=== PATIENT | male | born 1995 ===

== ENCOUNTER 2018-07-24 03:50 | Inpatient (IN) | payer OTHER ==
[2018-07-24] MEDS ORDERED: Sodium Chloride 0.9% 1,000 ML IV ONE ×2 (04:24→08:03)
[2018-07-24] MEDS ORDERED: Sodium Chloride 0.9% 1,000 ML ONE ×2 (04:36→08:00)
[2018-07-24 04:40] LABS: BASO % 0.2 % (0.0-2.0); EOS # 0.1 K/uL (0.0-0.7); EOS % 1.2 % (0.0-4.0); HEMOGLOBIN 15.2 g/dL (12.0-18.0); LYMPH % 29.9 % (20.0-40.0); MEAN CELL VOLUME 87.6 fL (80.0-94.0); MEAN CORPUSCULAR HEMOGLOBIN 30.8 pg (27.0-31.0); MEAN CORPUSCULAR HGB CONC 35.1 g/dL (33.0-37.0); MEAN PLATELET VOLUME 7.9 fL (7.2-11.7); MONO # 1.1 K/uL (0.0-0.8); MONO % 11.3 % (0.0-10.0); NEUT # 5.8 K/uL (1.8-7.0); NEUT % 57.4 % (50.0-75.0); NRBC % 0.1 % (0.0-2.0); RBC 4.95 Mil/uL (4.40-5.90); RED CELL DISTRIBUTION WIDTH 12.8 % (11.5-14.5); WHITE BLOOD COUNT 10.1 K/uL (4.8-10.8)
[2018-07-24 04:42] LABS: SQUAMOUS EPITHIAL < 1 /hpf (0-5); URINE BILIRUBIN NEGATIVE (NEGATIVE); URINE CLARITY Clear (Clear); URINE COLOR Yellow (YELLOW); URINE GLUCOSE (UA) NORMAL (Normal); URINE LEUKOCYTE ESTERASE NEG Leu/uL (Negative); URINE PROTEIN NEGATIVE (NEGATIVE); URINE UROBILINOGEN NORMAL mg/dL (0.2-1.0)
[2018-07-24 04:45] LABS: URINE BLOOD NEGATIVE (NEGATIVE)
--- NOTE | 2018-07-24 04:50 | C.PDOC ---
History Of Present Illness 23 y/o male presents to the ED complaining of intermittent RUQ pain for one month. He states the pain worsened tonight and was accompanied by vomiting, prompting ED visit. The patient denies any fever, diarrhea, or sick contact. Time Seen by Provider: 07/24/18 04:05 Chief Complaint (Nursing): Abdominal Pain History Per: Patient History/Exam Limitations: no limitations Onset/Duration Of Symptoms: Days Current Symptoms Are (Timing): Still Present Location Of Pain/Discomfort: RUQ Associated Symptoms: Vomiting. denies: Fever, Diarrhea Recent travel outside of the [place]: No Past Medical History Reviewed: Historical Data, Nursing Documentation, Vital Signs Vital Signs: Last Vital Signs Temp 98.2 F 07/24/18 06:09 Pulse 92 H 07/24/18 06:09 Resp 20 07/24/18 06:09 BP 124/80 07/24/18 06:09 Pulse Ox 100 07/24/18 06:09 - Medical History PMH: No Chronic Diseases Surgical History: No Surg Hx Family History: States: Unknown Family Hx - Social History Hx Alcohol Use: Yes Hx Substance Use: No Review Of Systems Except As Marked, All Systems Reviewed And Found Negative. Constitutional: Negative for: Fever Gastrointestinal: Positive for: Vomiting, Abdominal Pain (RUQ pain). Negative for: Diarrhea Physical Exam - Physical Exam Appears: Non-toxic, No Acute Distress Skin: Normal Color, Warm, Dry Head: Atraumatic, Normacephalic Oral Mucosa: Moist Cardiovascular: Rhythm Regular, No Murmur Respiratory: Normal Breath Sounds, No Rales, No Rhonchi, No Wheezing Gastrointestinal/Abdominal: Soft, Tenderness (to RUQ), No Distention, No Guarding, No Rebound, Other (+ Puentes's Sign) Back: No CVA Tenderness Neurological/Psych: Oriented x3, Normal Speech ED Course And Treatment - Laboratory Results Result Diagrams: 07/24/18 04:37 07/24/18 04:37 O2 Sat by Pulse Oximetry: 99 (RA) Pulse Ox Interpretation: Normal Progress Note: Pending Labs: CMP, Lipase, CBC, UA and US of abd. Toradol (30 mg IV), Zofran Ink (4 mg IV) and IV fluids given in ED. 0515: Pt c/o of reccuring pain, toradol 15mg IV ordered. pt remained stable in ED. Pt pending RUQ US- s/o to JUAN Song Disposition - Disposition Disposition Time: 07:01 Condition: STABLE Forms: [facility] ([place]) - Clinical Impression Clinical Impression: RUQ abdominal pain - PA / COMMUTATOR REPAIRER / Resident Statement MD/DO has reviewed & agrees with the documentation as recorded. - Scribe Statement The provider has reviewed the documentation as recorded by the Scribe (Dasia Peters) All medical record entries made by the Scribe were at my direction and personally dictated by me. I have reviewed the chart and agree that the record accurately reflects my personal performance of the history, physical exam, medical decision making, and the department course for this patient. I have also personally directed, reviewed, and agree with the discharge instructions and disposition. Physician Patient Turnover Patient Signed Over To: Minerva Song Handoff Comments: zpending RUQ US and disposition
[2018-07-24 04:52] LABS: ALB/GLOB RATIO 1.4 (1.0-2.1); ALBUMIN 4.8 g/dL (3.5-5.0); ALT/SGPT 47 U/L (21-72); AST/SGOT 25 U/L (17-59); BLOOD UREA NITROGEN 15 mg/dL (9-20); CALCIUM 9.3 mg/dl (8.6-10.4); GFR NON-AFRICAN AMERICAN > 60; LIPASE 82 U/L (23-300)
--- NOTE | 2018-07-24 08:39 | CP.PCM.CON ---
<Nolan Rodarte - Last Filed: 07/24/18 18:35> History of Present Illness - History of Present Illness History of Present Illness: A 23 year old male with no PMHx presented to the ED with epigastric and RUQ pain. The pain began a month ago and became acutely worse last night after consuming French food for dinner. The patient stated the pain was 10/10 this morning, but is now 8/10. The pain does not radiate. Patient confirmed three episodes of nausea/vomiting with the onset of the pain. Patient states symptoms worsen with consumption of fatty and spicy foods. Patient denied fever, weight loss, chills, headache, chest pain, shortness of breath, and changes in bowel movements. PMHx - none PSHx - none Review of Systems - Review of Systems Review of Systems: 12pt ROS negative except as stated in HPI Past Patient History - Past Social History Smoking Status: Current Some Days Smoker - PSYCHIATRIC Hx Substance Use: No Meds Allergies/Adverse Reactions: Allergies Allergy/AdvReac Type Severity Reaction Status Date / Time No Known Allergies Allergy Verified 07/24/18 03:57 - Medications Medications: Current Medications Sodium Chloride (Sodium Chloride 0.9%) 1,000 mls @ 1,000 mls/hr IV .Q1H ONE Stop: 07/24/18 09:02 Last Admin: 07/24/18 08:03 Dose: 1,000 mls/hr Physical Exam - Constitutional Appears: No Acute Distress - Eye Exam Eye Exam: Normal appearance - ENT Exam ENT Exam: Mucous Membranes Moist - Respiratory Exam Respiratory Exam: NORMAL BREATHING PATTERN - Cardiovascular Exam Cardiovascular Exam: +S1, +S2 - GI/Abdominal Exam GI & Abdominal Exam: Soft, Tenderness. absent: Distended, Firm, Guarding Additional comments: +RUQ tenderness - Neurological Exam Neurological exam: Alert, Oriented x3 - Psychiatric Exam Psychiatric exam: Normal Mood - Skin Skin Exam: Dry, Intact, Warm Results - Vital Signs Recent Vital Signs: Last Vital Signs Temp 98.2 F 07/24/18 07:36 Pulse 66 07/24/18 07:36 Resp 22 07/24/18 07:36 BP 127/72 07/24/18 07:36 Pulse Ox 97 07/24/18 07:36 - Labs Result Diagrams: 07/24/18 04:37 07/24/18 04:37 Labs: Laboratory Results - last 24 hr 07/24/18 07/24/18 07/24/18 04:37 04:37 04:37 WBC 10.1 RBC 4.95 Hgb 15.2 Hct 43.3 MCV 87.6 MCH 30.8 MCHC 35.1 RDW 12.8 Plt Count 281 MPV 7.9 Neut % (Auto) 57.4 Lymph % (Auto) 29.9 Grady % (Auto) 11.3 H Eos % (Auto) 1.2 Baso % (Auto) 0.2 Neut # (Auto) 5.8 Lymph # (Auto) 3.0 Grady # (Auto) 1.1 H Eos # (Auto) 0.1 Baso # (Auto) 0.0 Sodium 142 Potassium 3.7 Chloride 101 Carbon Dioxide 29 Anion Gap 15 BUN 15 Creatinine 0.8 Est GFR ( Amer) > 60 Est GFR (Non-Af Amer) > 60 Random Glucose 117 H Calcium 9.3 Total Bilirubin 0.6 AST 25 ALT 47 Alkaline Phosphatase 73 Total Protein 8.2 Albumin 4.8 Globulin 3.4 Albumin/Globulin Ratio 1.4 Lipase 82 Urine Color Yellow Urine Clarity Clear Urine pH 6.0 Ur Specific [place] 1.024 Urine Protein Negative Urine Glucose (UA) Normal Urine Ketones Negative Urine Blood Negative Urine Nitrate Negative Urine Bilirubin Negative Urine Urobilinogen Normal Ur Leukocyte Esterase Neg Urine WBC (Auto) < 1 Urine RBC (Auto) 2 Ur Squamous Epith Cells < 1 Assessment & Plan - Assessment and Plan (Free Text) Assessment: 23M with symptomatic cholelithiasis Plan: NPO IVF ABx Analgesics/Anti-emetics OR for robotic choelcystectomy possible open Consent in chart D/w Dr. Jay Choi PGY3 <Bryan Thompson B - Last Filed: 07/26/18 14:15> Meds - Medications Medications: Current Medications Acetaminophen (Tylenol 325mg Tab) 650 mg PO Q6 PRN PRN Reason: Fever >100.4 F Benzocaine/Menthol (Cepacol Sore Throat) 1 raj MT Q2H PRN PRN Reason: Sore Throat Lactated Ringer's (Lactated Ringer's) 1,000 mls @ 125 mls/hr IV .Q8H MARY ANN Last Admin: 07/26/18 09:55 Dose: 125 mls/hr Piperacillin Sod/Tazobactam (Sod 3.375 gm/ Sodium Chloride) 100 mls @ 200 mls/ hr IVPB Q6H MARY ANN PRN Reason: Protocol Last Admin: 07/26/18 10:15 Dose: 200 mls/hr Morphine Sulfate (Morphine) 4 mg IVP Q4 PRN PRN Reason: Pain, moderate (4-7) Last Admin: 07/25/18 18:05 Dose: 4 mg Ondansetron HCl (Zofran Inj) 4 mg IVP DAILY@ONCE PRN PRN Reason: Nausea/Vomiting Oxycodone/Acetaminophen (Percocet 5/325 Mg Tab) 2 tab PO Q4H PRN PRN Reason: Pain, moderate (4-7) Stop: 07/27/18 20:14 Results - Vital Signs Recent Vital Signs: Last Vital Signs Temp 99.5 F 07/26/18 00:00 Pulse 80 07/26/18 00:00 Resp 20 07/26/18 00:00 BP 136/72 07/26/18 00:00 Pulse Ox 97 07/26/18 00:00 - Labs Result Diagrams: 07/25/18 07:16 07/25/18 07:16 Attending/Attestation - Attestation I have personally seen and examined this patient.: Yes I have fully participated in the care of the patient.: Yes I have reviewed all pertinent clinical information: Yes Notes (Text): Pt was seen and examined at bedside Agree with above note and assessment Pt with RUQ pain and nausea Abdomen : soft, tender in RUQ Labs and radiology reviewed Ass: Acute Cholecystitis with Leucocytosis Plan : Lap Cholecystectomy possible Open Consent NPO, IVF IV antibiotics Plan d.w pt in detail Risk and benefit explained in detail.
--- NOTE | 2018-07-24 09:56 | US ---
Date of service: 07/24/2018 HISTORY: RUQ abd pain COMPARISON: None. TECHNIQUE: Grayscale imaging was performed. FINDINGS: LIVER: Measures 17.8 cm in length. There is diffuse increased echogenicity of the liver parenchyma with focal fatty sparing adjacent to the gallbladder fossa. No mass. No intrahepatic bile duct dilatation. GALLBLADDER: The gallbladder is distended with mild wall thickening and pericholecystic fluid. There are multiple gallstones. The sonographic Puentes's sign is positive. COMMON BILE DUCT: Measures 4.2 mm. No stones. No dilatation. PANCREAS: Unremarkable as visualized. No mass. No ductal dilatation. RIGHT KIDNEY: Measures cm in length. Normal echogenicity. No calculus, mass, or hydronephrosis. AORTA: No aneurysmal dilatation. IVC: Unremarkable. OTHER FINDINGS: None . IMPRESSION: Findings are most compatible with acute calculus cholecystitis. Mild hepatomegaly. Fatty liver with focal fatty sparing adjacent to the gallbladder fossa.
[2018-07-24] MEDS: Lactated Ringer's 1,000 ML IV SCH (10:00)
[2018-07-24] MEDS: Piperacillin/Tazobact 3.375 GM in Sodium Chloride 100 ML IVPB SCH ×3 (11:00→23:25)
[2018-07-24] MEDS ORDERED: Pneumococcal 23-Valent Vaccine IM ONE (14:15)
--- NOTE | 2018-07-24 15:41 | CP.PCM.HP ---
Past Patient History - Past Medical History & Family History Past Medical History?: Yes - Past Social History Smoking Status: Light Smoker < 10 Cigarettes Daily - CARDIAC Hx Cardiac Disorders: No - PULMONARY Hx Respiratory Disorders: No - NEUROLOGICAL Hx Neurological Disorder: No - HEENT Hx HEENT Problems: No - RENAL Hx Chronic Kidney Disease: No - ENDOCRINE/METABOLIC Hx Endocrine Disorders: No - HEMATOLOGICAL/ONCOLOGICAL Hx Blood Disorders: No - INTEGUMENTARY Hx Dermatological Problems: No - MUSCULOSKELETAL/RHEUMATOLOGICAL Hx Musculoskeletal Disorders: No Hx Falls: No - GASTROINTESTINAL Hx Gastrointestinal Disorders: No - GENITOURINARY/GYNECOLOGICAL Hx Genitourinary Disorders: No - PSYCHIATRIC Hx Psychophysiologic Disorder: No Hx Substance Use: No - SURGICAL HISTORY Hx Surgeries: No - ANESTHESIA Hx Anesthesia: Yes (Dental procedure) Hx Anesthesia Reactions: No Has any member of the family had a problem w/ anesthesia?: No Meds Allergies/Adverse Reactions: Allergies Allergy/AdvReac Type Severity Reaction Status Date / Time No Known Allergies Allergy Verified 07/24/18 03:57 Physical Exam - Constitutional Appears: Well - Head Exam Head Exam: ATRAUMATIC, NORMAL INSPECTION, NORMOCEPHALIC - Eye Exam Eye Exam: EOMI, Normal appearance, PERRL Pupil Exam: NORMAL ACCOMODATION, PERRL - ENT Exam ENT Exam: Mucous Membranes Moist, Normal Exam - Neck Exam Neck exam: Positive for: Normal Inspection - Respiratory Exam Respiratory Exam: Decreased Breath Sounds - Cardiovascular Exam Cardiovascular Exam: REGULAR RHYTHM, +S1, +S2 - GI/Abdominal Exam GI & Abdominal Exam: Diminished Bowel Sounds, Soft - Rectal Exam Rectal Exam: Deferred Results - Vital Signs Recent Vital Signs: Last Vital Signs Temp 98.3 F 07/24/18 10:00 Pulse 60 07/24/18 10:00 Resp 20 07/24/18 10:00 BP 109/54 L 07/24/18 10:00 Pulse Ox 98 07/24/18 10:00 - Labs Result Diagrams: 07/24/18 04:37 07/24/18 04:37 Labs: Laboratory Results - last 24 hr 07/24/18 07/24/18 07/24/18 04:37 04:37 04:37 WBC 10.1 RBC 4.95 Hgb 15.2 Hct 43.3 MCV 87.6 MCH 30.8 MCHC 35.1 RDW 12.8 Plt Count 281 MPV 7.9 Neut % (Auto) 57.4 Lymph % (Auto) 29.9 [place] % (Auto) 11.3 H Eos % (Auto) 1.2 Baso % (Auto) 0.2 Neut # (Auto) 5.8 Lymph # (Auto) 3.0 [place] # (Auto) 1.1 H Eos # (Auto) 0.1 Baso # (Auto) 0.0 Sodium 142 Potassium 3.7 Chloride 101 Carbon Dioxide 29 Anion Gap 15 BUN 15 Creatinine 0.8 Est GFR ( Amer) > 60 Est GFR (Non-Af Amer) > 60 Random Glucose 117 H Calcium 9.3 Total Bilirubin 0.6 AST 25 ALT 47 Alkaline Phosphatase 73 Total Protein 8.2 Albumin 4.8 Globulin 3.4 Albumin/Globulin Ratio 1.4 Lipase 82 Urine Color Yellow Urine Clarity Clear Urine pH 6.0 Ur Specific [place] 1.024 Urine Protein Negative Urine Glucose (UA) Normal Urine Ketones Negative Urine Blood Negative Urine Nitrate Negative Urine Bilirubin Negative Urine Urobilinogen Normal Ur Leukocyte Esterase Neg Urine WBC (Auto) < 1 Urine RBC (Auto) 2 Ur Squamous Epith Cells < 1
[2018-07-24 17:13] LABS: INR 1.1; PROTHROMBIN TIME 12.4 SECONDS (9.7-12.2)
[2018-07-24] MEDS ORDERED: Bupivacaine 0.25% 20 ML INJ IJ ONE (17:26)
[2018-07-24] MEDS ORDERED: Lidocaine/Epinephrine 1% 1:100000 10 ML IJ ONE (17:27)
[2018-07-24] MEDS ORDERED: Propofol 10 mg/ml Inj (20 ML) ONE ×2 (18:14→18:23)
[2018-07-24] MEDS ORDERED: Midazolam 2 MG/2 ML VIAL ONE (18:14)
[2018-07-24] MEDS ORDERED: Succinylcholine Chloride 20 mg/ml Syr (5 ml) IV ONE (18:23)
[2018-07-24] MEDS ORDERED: Rocuronium 10 mg/ml (5 ml) ONE (18:30)
[2018-07-24] MEDS ORDERED: Neostigmine Methylsulfate 3mg/3ml Syringe IV ONE (18:35)
[2018-07-24] MEDS ORDERED: Oxycodone/Acetaminophen 5/325 mg Tab PO PRN (20:13)
[2018-07-24] MEDS ORDERED: Lactated Ringer's 1,000 ML IV ONE (20:14)
--- NOTE | 2018-07-24 20:16 | PCM.SURG1 ---
Surgeon's Initial Post Op Note - Surgeon's Notes Surgeon: Dr. Thompson [employer] Lot Attendant: Cesar iniguez [id number] Type of Anesthesia: General Endo, Local Anesthesia Administered By: Julian Pre-Operative Diagnosis: symptomatic Cholelithiasis Operative Findings: large Gallstone Post-Operative Diagnosis: Same Operation Performed: laparoscopic cholecystectomy Specimen/Specimens Removed: gallbladder Estimated Blood Loss: EBL {In ML}: 20 Blood Products Given: N/A Drains Used: No Drains Post-Op Condition: Good Date of Surgery/Procedure: 07/24/18 Time of Surgery/Procedure: 20:16
[2018-07-25] MEDS: Lactated Ringer's 1,000 ML IV SCH ×4 (01:07→18:08)
[2018-07-25 01:29] VITALS: RESP 20
[2018-07-25] MEDS: Piperacillin/Tazobact 3.375 GM in Sodium Chloride 100 ML IVPB SCH ×4 (03:02→22:12)
[2018-07-25 07:36] VITALS: O2SAT 97
[2018-07-25 07:36] LABS: BASO % 0.1 % (0.0-2.0); EOS % 0.2 % (0.0-4.0); HEMOGLOBIN 14.1 g/dL (12.0-18.0); LYMPH # 1.3 K/uL (1.0-4.3); LYMPH % 12.4 % (20.0-40.0); MEAN CELL VOLUME 88.5 fL (80.0-94.0); MEAN CORPUSCULAR HGB CONC 35.1 g/dL (33.0-37.0); MONO # 1.3 K/uL (0.0-0.8); MONO % 12.1 % (0.0-10.0); NEUT % 75.2 % (50.0-75.0); RBC 4.54 Mil/uL (4.40-5.90); RED CELL DISTRIBUTION WIDTH 12.7 % (11.5-14.5); WHITE BLOOD COUNT 10.7 K/uL (4.8-10.8)
[2018-07-25 07:57] LABS: ALB/GLOB RATIO 1.6 (1.0-2.1); ALBUMIN 4.2 g/dL (3.5-5.0); ALT/SGPT 128 U/L (21-72); AST/SGOT 126 U/L (17-59); BLOOD UREA NITROGEN 7 mg/dL (9-20); CALCIUM 8.9 mg/dl (8.6-10.4); GFR NON-AFRICAN AMERICAN > 60
--- NOTE | 2018-07-25 08:35 | CP.PCM.PN ---
<Nolan Rodarte - Last Filed: 07/25/18 08:32> Subjective - Date & Time of Evaluation Date of Evaluation: 07/25/18 Time of Evaluation: 07:10 - Subjective Subjective: Patient seen and examined. NAEO. Tolerating regular diet. Objective - Vital Signs/Intake and Output Vital Signs (last 24 hours): Temp Pulse Resp BP Pulse Ox 98.1 F 87 20 119/64 97 07/25/18 07:35 07/25/18 07:35 07/25/18 07:35 07/25/18 07:35 07/25/18 07:35 Intake and Output: 07/25/18 07/25/18 06:59 18:59 Intake Total 1250 1200 Balance 1250 1200 - Medications Medications: Current Medications Acetaminophen (Tylenol 325mg Tab) 650 mg PO Q6 PRN PRN Reason: Fever >100.4 F Lactated Ringer's (Lactated Ringer's) 1,000 mls @ 125 mls/hr IV .Q8H [facility] Last Admin: 07/25/18 03:01 Dose: 125 mls/hr Piperacillin Sod/Tazobactam (Sod 3.375 gm/ Sodium Chloride) 100 mls @ 200 mls/ hr IVPB Q6H MARY ANN PRN Reason: Protocol Last Admin: 07/25/18 03:02 Dose: 200 mls/hr Morphine Sulfate (Morphine) 4 mg IVP Q4 PRN PRN Reason: Pain, moderate (4-7) Last Admin: 07/25/18 02:59 Dose: 4 mg Ondansetron HCl (Zofran Inj) 4 mg IVP DAILY@ONCE PRN PRN Reason: Nausea/Vomiting Oxycodone/Acetaminophen (Percocet 5/325 Mg Tab) 2 tab PO Q4H PRN PRN Reason: Pain, moderate (4-7) Stop: 07/27/18 20:14 - Labs Labs: 07/25/18 07:16 07/25/18 07:16 PT 12.4 SECONDS (9.7-12.2) H 07/24/18 16:59 INR 1.1 07/24/18 16:59 APTT 40 SECONDS (21-34) H 07/24/18 16:59 - Constitutional Appears: No Acute Distress - Head Exam Head Exam: NORMOCEPHALIC - Eye Exam Eye Exam: Normal appearance - Respiratory Exam Respiratory Exam: NORMAL BREATHING PATTERN - Cardiovascular Exam Cardiovascular Exam: +S1, +S2 - GI/Abdominal Exam GI & Abdominal Exam: Soft - Neurological Exam Neurological Exam: Alert, Awake, Oriented x3 - Psychiatric Exam Psychiatric exam: Normal Mood - Skin Skin Exam: Dry, Intact, Warm Assessment and Plan - Assessment and Plan (Free Text) Assessment: 23M s/p laparoscopic cholecystectomy POD1 Plan: -Tolerating regular diet -D/c planning -F/u with Dr. Thompson in 1 week -Take analgesics as prescribed along with stool softener D/w Dr. Jay Choi PGY3 <Bryan Thompson - Last Filed: 07/26/18 14:22> Objective - Vital Signs/Intake and Output Vital Signs (last 24 hours): Temp Pulse Resp BP Pulse Ox 99.5 F 80 20 136/72 97 07/26/18 00:00 07/26/18 00:00 07/26/18 00:00 07/26/18 00:00 07/26/18 00:00 Intake and Output: 07/26/18 07/26/18 06:59 18:59 Intake Total 2140 Balance 2140 - Medications Medications: Current Medications Acetaminophen (Tylenol 325mg Tab) 650 mg PO Q6 PRN PRN Reason: Fever >100.4 F Benzocaine/Menthol (Cepacol Sore Throat) 1 raj MT Q2H PRN PRN Reason: Sore Throat Lactated Ringer's (Lactated Ringer's) 1,000 mls @ 125 mls/hr IV .Q8H [facility] Last Admin: 07/26/18 09:55 Dose: 125 mls/hr Piperacillin Sod/Tazobactam (Sod 3.375 gm/ Sodium Chloride) 100 mls @ 200 mls/ hr IVPB Q6H MAYR ANN PRN Reason: Protocol Last Admin: 07/26/18 10:15 Dose: 200 mls/hr Morphine Sulfate (Morphine) 4 mg IVP Q4 PRN PRN Reason: Pain, moderate (4-7) Last Admin: 07/25/18 18:05 Dose: 4 mg Ondansetron HCl (Zofran Inj) 4 mg IVP DAILY@ONCE PRN PRN Reason: Nausea/Vomiting Oxycodone/Acetaminophen (Percocet 5/325 Mg Tab) 2 tab PO Q4H PRN PRN Reason: Pain, moderate (4-7) Stop: 07/27/18 20:14 - Labs Labs: 07/25/18 07:16 07/25/18 07:16 PT 12.4 SECONDS (9.7-12.2) H 07/24/18 16:59 INR 1.1 07/24/18 16:59 APTT 40 SECONDS (21-34) H 07/24/18 16:59 Attending/Attestation - Attestation I have personally seen and examined this patient.: Yes I have fully participated in the care of the patient.: Yes I have reviewed all pertinent clinical information, including history, physical exam and plan: Yes Notes (Text): Pt was seen and examined at bedside Agree with above note and assessment Pt is improving C/o incisional pain and weakness Liquid diet DC plan IV antibiotics Plan d.w pt in detail Risk and benefit explained in detail.
--- NOTE | 2018-07-25 15:31 | CP.PCM.PN ---
Subjective - Date & Time of Evaluation Date of Evaluation: 07/25/18 Time of Evaluation: 08:45 - Subjective Subjective: clinically same Objective - Vital Signs/Intake and Output Vital Signs (last 24 hours): Temp Pulse Resp BP Pulse Ox 98.1 F 87 20 119/64 97 07/25/18 07:35 07/25/18 07:35 07/25/18 07:35 07/25/18 07:35 07/25/18 07:35 Intake and Output: 07/25/18 07/25/18 06:59 18:59 Intake Total 1250 1200 Balance 1250 1200 - Medications Medications: Current Medications Acetaminophen (Tylenol 325mg Tab) 650 mg PO Q6 PRN PRN Reason: Fever >100.4 F Lactated Ringer's (Lactated Ringer's) 1,000 mls @ 125 mls/hr IV .Q8H [facility] Last Admin: 07/25/18 09:25 Dose: Not Given Piperacillin Sod/Tazobactam (Sod 3.375 gm/ Sodium Chloride) 100 mls @ 200 mls/ hr IVPB Q6H MARY ANN PRN Reason: Protocol Last Admin: 07/25/18 09:17 Dose: 200 mls/hr Morphine Sulfate (Morphine) 4 mg IVP Q4 PRN PRN Reason: Pain, moderate (4-7) Last Admin: 07/25/18 13:35 Dose: 4 mg Ondansetron HCl (Zofran Inj) 4 mg IVP DAILY@ONCE PRN PRN Reason: Nausea/Vomiting Oxycodone/Acetaminophen (Percocet 5/325 Mg Tab) 2 tab PO Q4H PRN PRN Reason: Pain, moderate (4-7) Stop: 07/27/18 20:14 - Labs Labs: 07/25/18 07:16 07/25/18 07:16 PT 12.4 SECONDS (9.7-12.2) H 07/24/18 16:59 INR 1.1 07/24/18 16:59 APTT 40 SECONDS (21-34) H 07/24/18 16:59 - Constitutional Appears: Well - Head Exam Head Exam: ATRAUMATIC, NORMAL INSPECTION, NORMOCEPHALIC - Eye Exam Eye Exam: EOMI, Normal appearance, PERRL Pupil Exam: NORMAL ACCOMODATION, PERRL - ENT Exam ENT Exam: Mucous Membranes Moist, Normal Exam - Neck Exam Neck Exam: Full ROM, Normal Inspection. absent: Lymphadenopathy - Respiratory Exam Respiratory Exam: Decreased Breath Sounds - Cardiovascular Exam Cardiovascular Exam: REGULAR RHYTHM, +S1, +S2 - GI/Abdominal Exam GI & Abdominal Exam: Soft, Diminished Bowel Sounds - Rectal Exam Rectal Exam: Deferred
[2018-07-26] MEDS: Lactated Ringer's 1,000 ML IV SCH ×2 (01:30→09:55)
[2018-07-26] MEDS: Piperacillin/Tazobact 3.375 GM in Sodium Chloride 100 ML IVPB SCH ×2 (03:05→10:15)
[2018-07-26] MEDS ORDERED: Benzocaine/Menthol (Cepacol) Lozenge MT PRN (09:37)
--- NOTE | 2018-07-26 09:40 | CP.PCM.PN ---
<Nolan Rodarte - Last Filed: 07/26/18 09:36> Subjective - Date & Time of Evaluation Date of Evaluation: 07/26/18 Time of Evaluation: 06:30 - Subjective Subjective: Patient seen and examined. No acute events over night. Tolerating diet. Pain improved. Complaining of sore throat. Objective - Vital Signs/Intake and Output Vital Signs (last 24 hours): Temp Pulse Resp BP Pulse Ox 99.5 F 80 20 136/72 97 07/26/18 00:00 07/26/18 00:00 07/26/18 00:00 07/26/18 00:00 07/26/18 00:00 Intake and Output: 07/26/18 07/26/18 06:59 18:59 Intake Total 2140 Balance 2140 - Medications Medications: Current Medications Acetaminophen (Tylenol 325mg Tab) 650 mg PO Q6 PRN PRN Reason: Fever >100.4 F Lactated Ringer's (Lactated Ringer's) 1,000 mls @ 125 mls/hr IV .Q8H [facility] Last Admin: 07/26/18 01:30 Dose: 125 mls/hr Piperacillin Sod/Tazobactam (Sod 3.375 gm/ Sodium Chloride) 100 mls @ 200 mls/ hr IVPB Q6H MARY ANN PRN Reason: Protocol Last Admin: 07/26/18 03:05 Dose: 200 mls/hr Morphine Sulfate (Morphine) 4 mg IVP Q4 PRN PRN Reason: Pain, moderate (4-7) Last Admin: 07/25/18 18:05 Dose: 4 mg Ondansetron HCl (Zofran Inj) 4 mg IVP DAILY@ONCE PRN PRN Reason: Nausea/Vomiting Oxycodone/Acetaminophen (Percocet 5/325 Mg Tab) 2 tab PO Q4H PRN PRN Reason: Pain, moderate (4-7) Stop: 07/27/18 20:14 - Labs Labs: 07/25/18 07:16 07/25/18 07:16 PT 12.4 SECONDS (9.7-12.2) H 07/24/18 16:59 INR 1.1 07/24/18 16:59 APTT 40 SECONDS (21-34) H 07/24/18 16:59 - Constitutional Appears: No Acute Distress - Head Exam Head Exam: NORMOCEPHALIC - Eye Exam Eye Exam: EOMI, Normal appearance - ENT Exam ENT Exam: Mucous Membranes Moist - Respiratory Exam Respiratory Exam: NORMAL BREATHING PATTERN - Cardiovascular Exam Cardiovascular Exam: +S1 - GI/Abdominal Exam GI & Abdominal Exam: Soft. absent: Distended, Firm, Guarding, Rigid, Rebound - Neurological Exam Neurological Exam: Alert, Awake, Oriented x3 - Psychiatric Exam Psychiatric exam: Normal Mood - Skin Skin Exam: Dry, Intact, Warm Assessment and Plan - Assessment and Plan (Free Text) Assessment: 23M s/p laparoscopic cholecystectomy Plan: -Regular diet -Cepacol prn sore throat 2/2 intubation -Clear for d/c from surgical standpoint - F/u w/ Dr. Thompson in 1 week - D/w Dr. Jay Choi PGY3 <Bryan Thompson - Last Filed: 07/26/18 14:40> Objective - Vital Signs/Intake and Output Vital Signs (last 24 hours): Temp Pulse Resp BP Pulse Ox 99.5 F 80 20 136/72 97 07/26/18 00:00 07/26/18 00:00 07/26/18 00:00 07/26/18 00:00 07/26/18 00:00 Intake and Output: 07/26/18 07/26/18 06:59 18:59 Intake Total 2140 Balance 2140 - Medications Medications: Current Medications Acetaminophen (Tylenol 325mg Tab) 650 mg PO Q6 PRN PRN Reason: Fever >100.4 F Benzocaine/Menthol (Cepacol Sore Throat) 1 raj MT Q2H PRN PRN Reason: Sore Throat Lactated Ringer's (Lactated Ringer's) 1,000 mls @ 125 mls/hr IV .Q8H [facility]ARY [facility] Last Admin: 07/26/18 09:55 Dose: 125 mls/hr Piperacillin Sod/Tazobactam (Sod 3.375 gm/ Sodium Chloride) 100 mls @ 200 mls/ hr IVPB Q6H MARY ANN PRN Reason: Protocol Last Admin: 07/26/18 10:15 Dose: 200 mls/hr Morphine Sulfate (Morphine) 4 mg IVP Q4 PRN PRN Reason: Pain, moderate (4-7) Last Admin: 07/25/18 18:05 Dose: 4 mg Ondansetron HCl (Zofran Inj) 4 mg IVP DAILY@ONCE PRN PRN Reason: Nausea/Vomiting Oxycodone/Acetaminophen (Percocet 5/325 Mg Tab) 2 tab PO Q4H PRN PRN Reason: Pain, moderate (4-7) Stop: 07/27/18 20:14 - Labs Labs: 07/25/18 07:16 07/25/18 07:16 PT 12.4 SECONDS (9.7-12.2) H 07/24/18 16:59 INR 1.1 07/24/18 16:59 APTT 40 SECONDS (21-34) H 07/24/18 16:59 Attending/Attestation - Attestation I have fully participated in the care of the patient.: Yes I have reviewed all pertinent clinical information, including history, physical exam and plan: Yes Notes (Text): Pt is stable clinically Can be DC home with Po percocet and colace Local wound care f.u as out pt Plan d.w pt in detail
--- NOTE | 2018-07-26 14:01 | CP.PCM.PN ---
Subjective - Date & Time of Evaluation Date of Evaluation: 07/26/18 Time of Evaluation: 08:45 - Subjective Subjective: clinically same Objective - Vital Signs/Intake and Output Vital Signs (last 24 hours): Temp Pulse Resp BP Pulse Ox 99.5 F 80 20 136/72 97 07/26/18 00:00 07/26/18 00:00 07/26/18 00:00 07/26/18 00:00 07/26/18 00:00 Intake and Output: 07/26/18 07/26/18 06:59 18:59 Intake Total 2140 Balance 2140 - Medications Medications: Current Medications Acetaminophen (Tylenol 325mg Tab) 650 mg PO Q6 PRN PRN Reason: Fever >100.4 F Benzocaine/Menthol (Cepacol Sore Throat) 1 raj MT Q2H PRN PRN Reason: Sore Throat Lactated Ringer's (Lactated Ringer's) 1,000 mls @ 125 mls/hr IV .Q8H MARY ANN Last Admin: 07/26/18 09:55 Dose: 125 mls/hr Piperacillin Sod/Tazobactam (Sod 3.375 gm/ Sodium Chloride) 100 mls @ 200 mls/ hr IVPB Q6H MARY ANN PRN Reason: Protocol Last Admin: 07/26/18 10:15 Dose: 200 mls/hr Morphine Sulfate (Morphine) 4 mg IVP Q4 PRN PRN Reason: Pain, moderate (4-7) Last Admin: 07/25/18 18:05 Dose: 4 mg Ondansetron HCl (Zofran Inj) 4 mg IVP DAILY@ONCE PRN PRN Reason: Nausea/Vomiting Oxycodone/Acetaminophen (Percocet 5/325 Mg Tab) 2 tab PO Q4H PRN PRN Reason: Pain, moderate (4-7) Stop: 07/27/18 20:14 - Labs Labs: 07/25/18 07:16 07/25/18 07:16 PT 12.4 SECONDS (9.7-12.2) H 07/24/18 16:59 INR 1.1 07/24/18 16:59 APTT 40 SECONDS (21-34) H 07/24/18 16:59 - Constitutional Appears: Well - Head Exam Head Exam: ATRAUMATIC, NORMAL INSPECTION, NORMOCEPHALIC - Eye Exam Eye Exam: EOMI, Normal appearance, PERRL Pupil Exam: NORMAL ACCOMODATION, PERRL - ENT Exam ENT Exam: Mucous Membranes Moist, Normal Exam - Neck Exam Neck Exam: Full ROM, Normal Inspection. absent: Lymphadenopathy - Respiratory Exam Respiratory Exam: Decreased Breath Sounds - Cardiovascular Exam Cardiovascular Exam: REGULAR RHYTHM, +S1, +S2 - GI/Abdominal Exam GI & Abdominal Exam: Soft, Diminished Bowel Sounds - Rectal Exam Rectal Exam: Deferred Assessment and Plan - Assessment and Plan (Free Text) Plan: Patient can tolerate the food Augmentin prescription given patient can be discharged patient agrees we will see the patient off is on redness the patient is ready for the discharge
[2018-07-26 16:14] VITALS: BP 122/68; PULSE 68; TEMP 98.4
--- NOTE | 2018-07-26 23:14 | OP ---
PROCEDURE DATE: 07/24/2018 PREOPERATIVE DIAGNOSIS: Acute cholecystitis. POSTOPERATIVE DIAGNOSIS: Acute cholecystitis. PROCEDURE DONE: Laparoscopic cholecystectomy. SURGEON: Bryan Thompson MD CURTAIN CLEANER: Cesar Farmer DO, PGY-3 Resident ANESTHESIA: General endotracheal tube anesthesia. ESTIMATED BLOOD LOSS: Around 10 mL. DRAINS: None. PATHOLOGY: Gallbladder with gallstones sent for the pathology. COMPLICATIONS: None. INTRAOPERATIVE FINDINGS: The patient had changes of acute cholecystitis and cholelithiasis. DESCRIPTION OF PROCEDURE: On intraoperative steps, this is a 23-year-old male who was diagnosed with acute cholecystitis and cholelithiasis. The patient was consented for the laparoscopic cholecystectomy, possible open, brought to the OR, placed supine on the operating table. After induction of the anesthesia, the abdomen was prepped and draped in the usual sterile fashion. A supraumbilical transverse incision was made. After incising the skin, subcutaneous tissue and the fascia, the Madelin port was placed. Pneumo was created. Another 12-mm port was placed in the midline below costal margin, and two 5-mm ports were placed in midclavicular and anterior axillary line. After that, grasper and dissector were introduced, and the gallbladder was retracted cranially. Calot's triangle dissection was done. Cystic duct and cystic artery were identified and clipped at three places and cut in between two clips near the gallbladder. Gallbladder was dissected free from the gallbladder fossa. The critical view of the safety was identified. The top down approach was done, and cystic duct on common bile duct junction was identified before clipping the cystic duct and after proper hemostasis and after suction irrigation of the gallbladder fossa and perihepatic area. All the ports were taken out under vision, pneumo was deflated. The umbilical port site was closed in two layers, the fascia with 0 Vicryl interrupted sutures, skin with the 4-0 Monocryl, and dry sterile dressing was applied. The patient tolerated the procedure well. Counts of instrument and gauze were correct. There was no apparent complication. Bryan Thompson MD
== END 2018-07-26 18:00 | disposition home or self-care (01) | DRG 419 ==
LOC: C.ER 03:50 → C.9E 08:52 → C.3T 09:12
PROVIDERS: ADMIT Internal Medicine Nephrology; ATTEND Internal Medicine Nephrology
PROC: 0FT44ZZ Resection of Gallbladder, Percutaneous Endoscopic Approach (ICD-10-PCS; principal; 2018-07-24 14:30)
DX: K80.12 Calculus of gallbladder with acute and chronic cholecystitis without obstruction (principal); F17.210 Nicotine dependence, cigarettes, uncomplicated; D72.829 Elevated white blood cell count, unspecified